=== PATIENT | female | born 1965 | race Caucasian/White ===

== ENCOUNTER 2020-05-15 09:40 | Outpatient (NON) | payer OTHER, SELFPAY ==
[2020-05-16 00:16] LABS: SARS-CoV-2 RNA PCR Negative
== END 2020-05-15 09:41 ==
PROVIDERS: PCP Internal Medicine; Visit Provider Internal Medicine
DX: R68.89 Other general symptoms and signs (principal); Z20.822 Contact with and (suspected) exposure to COVID-19
CPT/HCPCS: C9803; U0003; U0005

== ENCOUNTER → 2021-05-08 03:14 | Outpatient (CLI) | payer OTHER, SELFPAY ==
[2021-05-09 20:55] LABS: SARS-CoV-2 RNA PCR Positive
== END ==
PROVIDERS: PCP Internal Medicine; Visit Provider Internal Medicine
DX: U07.1 COVID-19 (principal); R68.89 Other general symptoms and signs
CPT/HCPCS: C9803; U0003; U0005

== ENCOUNTER 2022-06-27 12:25 | Emergency (ER) | payer OTHER, SELFPAY ==
--- NOTE | 2022-06-27 12:26 | ECG_ITS ---
Measurements Intervals [place] Rate: 94 P: 81 VA: 180 QRS: 85 QRSD: 99 T: 64 QT: 342 QTc: 428 Interpretive Statements SINUS RHYTHM INCOMPLETE RIGHT BUNDLE BRANCH BLOCK [90+ ms QRS DURATION, TERMINAL R IN V1/V2, 40+ ms S IN I/aVL/V4/V5/V6] BORDERLINE ECG NO PREVIOUS ECG AVAILABLE FOR COMPARISON Electronically Signed On 06-27-2022 15:39:26 TIMBER SPRINKLER by Emigdio Valadez M.D.
[2022-06-27 12:40] VITALS: BP 187/90; PULSE 91; RESP 16; TEMP 37.6; O2SAT 100
--- NOTE | 2022-06-27 13:47 | PC.NURSE ---
Pt walked out of ed at this time.
== END 2022-06-27 13:47 | disposition left against medical advice (07) ==
PROVIDERS: Emergency Provider Emergency Medicine; PCP Family Medicine
DX: I10 Essential (primary) hypertension (principal)
CPT/HCPCS: 93005; 99199

== ENCOUNTER 2023-04-09 09:12 | Outpatient (CLI) | payer OTHER, SELFPAY ==
[2023-04-09 12:15] LABS: Alanine Aminotransferase 19 U/L (6-35); Albumin Level 4.3 g/dL (3.5-5.1); Alkaline Phosphatase 68 U/L (38-126); Anion Gap 5 mmol/L (8-16); Aspartate Amino Transferase 34 U/L (14-36); Bilirubin,Total 0.5 mg/dL (0.2-1.3); Blood Urea Nitrogen 16 mg/dL (7-17); Calcium 9.2 mg/dL (8.4-10.2); Carbon Dioxide 28 mmol/L (22-30); Chloride 105 mmol/L (98-107); Cholesterol 224 mg/dL (0-200); Estimated Glomerular Filt Rate > 60; Glucose 91 mg/dL (65-110); HDL Direct 66 mg/dL; Potassium 4.1 mmol/L (3.4-5.0); Sodium 138 mmol/L (137-145); Triglycerides 68 mg/dL (<150)
[2023-04-09 12:25] LABS: LDL Cholesterol Direct 115 mg/dL
[2023-04-09 12:34] LABS: Hemoglobin A1C 5.3 % (<5.7)
[2023-04-09 15:39] LABS: Free T4 Free Thyroxine 0.63 ng/mL (0.78-2.19)
== END 2023-04-09 09:13 | disposition home or self-care (01) ==
PROVIDERS: PCP Family Medicine; Visit Provider Family Medicine
DX: Z13.220 Encounter for screening for lipoid disorders (principal); E03.9 Hypothyroidism, unspecified; Z13.228 Encounter for screening for other metabolic disorders; R73.9 Hyperglycemia, unspecified
CPT/HCPCS: 36415; 80053; 80061; 83036; 84439; 84443

== ENCOUNTER 2023-08-13 09:39 | Outpatient (CLI) | payer OTHER, SELFPAY ==
[2023-08-13 12:54] LABS: Thyroid Stimulating Hormone 0.241 uIU/mL (0.465-4.680)
[2023-08-13 13:46] LABS: Free T4 Free Thyroxine 0.81 ng/mL (0.78-2.19)
== END 2023-08-13 09:40 | disposition home or self-care (01) ==
LOC: ANHGOSHLAB 09:42
PROVIDERS: PCP Family Medicine; Visit Provider Family Medicine
DX: E03.9 Hypothyroidism, unspecified (principal)
CPT/HCPCS: 36415; 84439; 84443

== ENCOUNTER 2023-09-30 11:30 | Outpatient (CLI) | payer OTHER, SELFPAY ==
[2023-09-30 20:12] LABS: Free T4 Free Thyroxine 0.81 ng/mL (0.78-2.19)
[2023-09-30 21:08] LABS: Thyroid Stimulating Hormone 0.714 uIU/mL (0.465-4.680)
== END 2023-09-30 11:31 | disposition home or self-care (01) ==
LOC: ANHGOSHLAB 11:32
PROVIDERS: PCP Family Medicine; Visit Provider Family Medicine
DX: E03.9 Hypothyroidism, unspecified (principal)
CPT/HCPCS: 36415; 84439; 84443

== ENCOUNTER 2024-02-11 10:26 | Outpatient (CLI) | payer OTHER, SELFPAY ==
[2024-02-11 15:19] LABS: Thyroid Stimulating Hormone 0.587 uIU/mL (0.465-4.680)
== END 2024-02-11 10:27 | disposition home or self-care (01) ==
LOC: ANHGOSHLAB 10:27
PROVIDERS: PCP Family Medicine; Visit Provider Family Medicine
DX: E03.9 Hypothyroidism, unspecified (principal)
CPT/HCPCS: 36415; 84439; 84443

== ENCOUNTER 2024-04-12 09:51 | Outpatient (CLI) | payer OTHER, SELFPAY ==
--- NOTE | ~2024-04-12 | MR_ITS ---
MRI of the left knee Clinical history: Pain Technique: Coronal proton density and proton density-weighted images, sagittal proton-density and T2 fat-sat images, and axial proton-density fat-saturated images were acquired. Findings: Anterior and posterior cruciate ligaments are intact. Medial collateral ligament and the la teral collateral ligament complex are intact. Popliteus tendon is intact. Medial and lateral menisci are intact, without evidence of tear. There is advanced constellation patella with focal areas of subchondral cystic change, specially the apex extending to the medial facet. There is focal high-grade chondromalacia the femoral trochlea fernando trally with subchondral cystic change. There is minimal chondral thinning in the medial lateral cuauhtemoc rtments. Extensor mechanism is intact. No significant joint effusion or Bergeron's cyst. Impression: Degenerative changes of the patellofemoral compartment, as above. No ligamentous injury or meniscal tear. Reviewed, dictated and finalized at [facility]. GE CRANE OPERATOR Impression: Degenerative changes of the patellofemoral compartment, as above. No ligamentous injury or meniscal tear.
== END 2024-04-12 09:52 | disposition home or self-care (01) ==
PROVIDERS: PCP Family Medicine; Visit Provider Family Medicine
DX: M17.12 Unilateral primary osteoarthritis, left knee (principal)
CPT/HCPCS: 73721

== ENCOUNTER 2024-04-29 15:08 | Emergency (ER) | payer OTHER, SELFPAY ==
[2024-04-29 16:31] VITALS: BP 153/95; PULSE 115; RESP 16; TEMP 36.9; O2SAT 99
--- NOTE | 2024-04-29 18:05 | ED.URI ---
HPI - URI/Sore Throat General Chief Complaint: Upper Respiratory Infection Stated Complaint: Flu Symptoms Time Seen by Provider: 04/29/24 17:45 Source: patient, RN notes reviewed and old records reviewed Mode of arrival: ambulatory Limitations: no limitations History of Present Illness HPI Narrative: 58 year old female who presents to [facility] care with complaints of cough, nasal congestion and drainage some body aches, for the past 2 days, reports some chills unsure if fever. Patient does have history of asthma and does have inhaler. Patient reports no shortness of breath or any recent wheezing noted, no tachypnea o with SAO2 99% on room air MD elicited complaint: cough, rhinorrhea and nasal congestion Pertinent past history: asthma Onset (ago): day(s) (2) Severity: mild Able to tolerate fluids by mouth: Yes Treatments prior to arrival: ibuprofen Related Data Home Medications ?Medication ?Instructions ?Recorded ?Confirmed ?Last Taken ?Type levalbuterol tartrate 45 2 inh inhalation Q6H PRN 04/10/23 02/12/24 Unknown History mcg/actuation aerosol inhaler (Xopenex HFA) clascoterone 1 % topical cream applic topical 08/14/23 02/12/24 Unknown History (Winlevi) clindamycin 1.2 %-benzoyl peroxide topical 08/14/23 02/12/24 Unknown History 2.5 % topical gel with pump Allergies Allergy/AdvReac Type Severity Reaction Status Date / Time latex Allergy Severe Hives Verified 02/12/24 12:55 Sulfa (Sulfonamide Allergy Severe trouble Verified 02/12/24 12:55 Antibiotics) breathing iodine Allergy Mild edema Verified 02/12/24 12:55 amoxicillin Allergy Unknown Vomiting Verified 02/12/24 12:55 Review of Systems Review of Systems: CONSTITUTIONAL: Reports malaise, chills, sweats, unsure if fever. EYES: Denies visual changes, redness, or discharge. ENT: Reports rhinorrhea, congestion, sinus pain, no otalgia and no sore throat. CARDIOVASCULAR: Denies chest pain, palpitations, or edema. RESPIRATORY: Reports cough.? Denies dyspnea. GASTROINTESTINAL: Denies abdominal pain, nausea, vomiting, diarrhea SKIN: Denies rash or itching. MUSCULOSKELETAL:Reports myalgia. NEUROLOGIC: Denies headache. All systems reviewed & are unremarkable except as noted in HPI and below PMFSH Past Medical History Medical History Hair loss disorder Abnormal mammogram Female pelvic peritoneal adhesion Bladder pain Pelvic pain in female Urinary tract infection symptoms Kidney stones Insomnia disorder Nocturnal leg cramps Hypothyroidism (acquired) Surgical History Surgical History History of mandibular surgery History of hysterectomy Family History Family History Mother Family history of thyroid disease Asthma Grandparent Hypertension Family history of Alzheimer's disease Diabetes mellitus Cerebrovascular accident Father , 76 Hypertension Family history of combined hyperlipidemia Other Family history of allergic disorder Social History Social History Smoking status: Never smoker Second hand tobacco smoke exposure: No Alcohol intake: never Substance use: never Substance use type: does not use Current Housing: Decline to Answer Concerned About Future Housing: Decline to Answer Difficulty Paying Gas/Electric Bills: Decline to Answer Difficulty Paying for Meds: Decline to Answer Currently Unemployed: Decline to Answer Education: Decline to Answer Difficulty w/ Childcare or Family Care: Decline to Answer Comments At time of signature, agree with nursing past medical, surgical, social and family history. There is no relevant family history pertinent to the presenting complaint Exam Narrative: GENERAL: Well-appearing, well-nourished, and in no acute distress. HEAD: Normocephalic EYES: PERRLA, conjunctivae clear ENT: Nares clear, turbinates edematous and erythematous, clear discharge with some sinus pressure,. Mucous membranes moist. TM pearly contreras with dull light reflex bilaterally; no tragal tenderness. Oropharynx erythematous without lesions. Tonsils not enlarged and without exudate, no drooling, no hoarseness, no trismus, uvula midline.post nasal drainage NECK: Supple. No lymphadenopathy CHEST: Clear to auscultation, breath sounds equal. No wheezing, rhonchi, rales, or stridor. No respiratory distress, speaks in full sentences.dry cough noted SAO2 99% on room air HEART: Regular rate and rhythm. No murmur heard. SKIN: Warm, dry, no rash. NEURO: Alert and oriented x3. PSYCH: Normal mood and affect Course Course Emergency Course: Patient is aware of diagnosis, understands and agrees to treatment plan.? Anticipatory guidance given.? Patient agrees to follow-up as directed and is aware of reasons to seek care at the emergency department. Portions of this record may have been created with voice recognition software Level of Care: Express Care Visit Vital Signs Vital signs: Vital Signs Oxygen Delivery Room Air 04/29/24 16:30 Temperature 36.9 C 04/29/24 16:31 Pulse Rate 115 H 04/29/24 16:31 Respiratory Rate 16 04/29/24 16:31 Blood Pressure 153/95 H 04/29/24 16:31 Pulse Oximetry 99 04/29/24 16:31 Oxygen Delivery Room Air 04/29/24 16:30 Reviewed MDM - URI/Sore Throat MDM Narrative Medical decision making narrative: Differential diagnosis considered: Pak virus, strep pharyngitis, allergic rhinitis, upper respiratory tract infection, sinusitis, rhinosinusitis, nasopharyngitis. viral pharyngitis, otitis media, otitis externa, pneumonia, bronchitis, viral cough syndrome, viral syndrome, and influenza.? Exam findings show no acute concerns or changes; patient is non-toxic appearing and is in no distress.? Patient is appropriate for outpatient treatment and follow-up. Differential Diagnosis Differential diagnosis: Likely upper respiratory infection, sinusitis, viral infection, bronchitis, influenza and other (COVID) Medical Records Attestation: I reviewed the patient's medical records. Lab Data Attestation: I reviewed the patient's lab results. Lab results narrative: Influenza A negative, Influenza B negative, COVID antigen positive Labs: Lab Results 04/29/24 Range/Units 16:38 POC Influenza A Ag Negative (Negative) POC Influenza B Ag Negative (Negative) POC SARS CoV-2 Ag Positive (Negative) reviewed Critical Care Time Critical Care Time Critical Care Time: No Discharge Plan Discharge Clinical Impression: COVID-19 Patient Disposition: Home, Self-Care Condition: Stable Instructions: Nirmatrelvir/Ritonavir (By mouth), How to Recover from COVID-19 at Home (ED) Additional Instructions: Increase fluids especially juices and water [id number] cough and cold medicine of your choice for your symptoms Zyrtec Claritin or Jaylin daily use Coricidin brand decongestant Continue your inhaler/nebulizer as directed Tylenol or ibuprofen for fever pain heat to the face 20-30 minutes 4-6 times a day for pain Salt water gargles, throat lozenges or throat sprays as desired Paxlovid per patient request must quarantine COVID-19 DISCHARGE The following recommendations have been made by the CDC and local Health Departments, regarding COVID-19: Those individuals with mild cases of COVID-19 can generally be discontinued from isolation, 10 days AFTER the onset of symptoms AND the resolution of fever for 24hrs (without the use of fever-reducing medications) Those individuals who were asymptomatic, and tested positive, are discontinued from isolation 10 days AFTER their first positive COVID-19 test Those individuals with SEVERE to CRITICAL illness or immunocompromised diseases may require up to 20 days of home isolation or hospitalization Majority of mild to moderate cases can be treated at home, without hospitalization or prescription medications You do not need a negative test result to return to work/school, assuming the above recommendations have been met and you are not symptomatic. At this time, return to work/school notes will not be provided. Guidelines from the local Health Department, CDC, and workplace are expected to be followed. All individuals in the household need to remained quarantined for up to 14 days if asymptomatic OR 10 days after the start of symptoms. Everyone in the home DOES NOT require testing, they are presumed positive and should quarantine as directed. Treating symptoms for mild to moderate cases may include: Tylenol, Flonase/nasal spray, OTC cold/flu medications recommended from your provider or any necessary prescription medications provided at your visit or from your PCP IF YOU TESTED NEGATIVE If you are symptomatic with reason to believe you have COVID-19, there is a high possibility your rapid test may not have detected the virus. Rapid testing is dependent on timing and viral load and may have a false-negative reading You should follow appropriate guidelines regarding quarantine, hand washing, mask wearing, and social distancing You may be sent for PCR testing as an outpatient to the [facility] site Common Adult Symptoms: Fever/chills Cough Shortness of breath Fatigue, muscle aches Headache Loss of taste/smell Sore throat, congestion, runny nose GI symptoms (nausea, vomiting, diarrhea) Common Pediatric Symptoms Cough Fever GI symptoms (diarrhea, upset stomach, nausea, vomiting) Symptoms may differ in severity however, most cases do not require hospitalization. WHEN TO SEEK ER EVALUATION/TREATMENT Severe/persistent shortness of breath or difficulty breathing Elevated, persistent fevers without resolution with fever-reducing medications Chest pain Extreme fatigue/lethargy Complications of pre-existing disease Patient Language: Chadian Prescriptions: New Paxlovid 300 mg (150 mg x 2)-100 mg tablets,dose pack See Rx Instructions .ROUTE .COMPLEX Qty: 30 0RF Rx Instructions: take TWO 150 mg tablets of nirmatrelvir with ONE 100 mg tablet of ritonavir twice daily for 5 days Patient reports that she has not used Wixela inhaler for months and will not take trazadone while on Paxlovid No Action levalbuterol tartrate [Xopenex HFA] 45 mcg/actuation HFA aerosol inhaler 2 inh INHALATION Q6H PRN clindamycin-benzoyl peroxide 1.2-2.5 % gel with pump topical Winlevi 1 % cream topical trazodone 50 mg tablet 50 mg PO DAILY Qty: 90 3RF Rx Instructions: At bedtime (DME) nebulizer supplies See Rx Instructions .Route .MEDSUPPLY Qty: 1 0RF Rx Instructions: adult nebulizer mask & tubing length of need: 99+ months albuterol sulfate 2.5 mg /3 mL (0.083 %) solution for nebulization 2.5 mg INHALATION Q4-6H PRN (Reason: bronchospasm) Qty: 90 3RF thyroid (pork) 90 mg tablet 90 mg PO DAILY Qty: 90 1RF amlodipine-olmesartan 5-20 mg tablet See Rx Instructions .ROUTE .COMPLEX Qty: 90 1RF Dose Instruction: TAKE 1 TABLET DAILY Rx Instructions: TAKE 1 TABLET DAILY fluticasone propion-salmeterol [Wixela Inhub] 250-50 mcg/dose blister with device 1 inh inhalation BID Qty: 60 1RF Follow-up/Referrals: Shane Cade DO [Primary Care Provider] - Stand Alone Forms: Work/School Release IP Time of Disposition: 18:22 Quality [place] Com[place] Scale Eyes: Open Verbal: Oriented and Alert Motor: Follows Commands [place] Com[place] Total Score: 15
[2024-04-29 18:11] LABS: EDCOVIDSCREEN Positive (Negative); EDINFLUASCREEN Negative (Negative); EDINFLUBSCREEN Negative (Negative)
== END 2024-04-29 18:30 | disposition home or self-care (01) ==
PROVIDERS: Emergency Provider Registered Nurse; PCP Family Medicine
DX: U07.1 COVID-19 (principal); E03.9 Hypothyroidism, unspecified
CPT/HCPCS: 87426; 87804; 99213; G0463

== ENCOUNTER 2024-06-14 09:02 | Outpatient (CLI) | payer OTHER, SELFPAY ==
--- OUTSIDE RECORDS SUMMARY | 2024-06-14 09:45 | XMS_ITS | Clinical Summary ---
Author Organization [facility] Address [address] [place] [address] Care Team Providers Care Trolley Wire Installer Name Role Phone Star Mejia MD Unavailable Shane Cade DO Primary Care Provider Allergies Active Allergy Reactions Criticality Noted Date Comments Amoxicillin-Pot Clavulanate Vomiting Low 04/29/2018 Canola Oil Vomiting Low 04/29/2018 Bisacodyl Other (See comments) Low 04/29/2018 Abdominal pain, vomiting Egg Anaphylaxis High Latex Hives Medium Medications fluticasone (FLONASE) 50 mcg/actuation nasal spray Administer 1 spray into each nostril daily. Active levalbuterol (XOPENEX HFA) 45 mcg/actuation inhaler Inhale 1-2 puffs. Active albuterol (PROVENTIL,VENTOLI N) 0.63 mg/3 mL nebulizer solution Take 3 mL (0.63 mg total) by nebulization every 6 (six) hours as needed for wheezing Active fluticasone propion-salmeteroL (ADVAIR HFA) 115-21 mcg/actuation inhaler Inhale 2 puffs 2 (two) times a day Rinse mouth with water after use. Do not swallow. Active traZODone (DESYREL) 50 mg tablet Take 50 mg by mouth nightly Active doxycycline 100 mg tablet 09/19/19 22 Active Advair HFA 230-21 mcg/actuation inhaler 10/15/19 22 Active amlodipine-olmesar de la cruz (SOFIA) 5-20 mg per tablet 10/12/19 23 Active thyroid ([place] Thyroid) 90 mg tabletIndications: Acquired hypothyroidism Take 1 tablet (90 mg total) by mouth daily 90 tablet 3 10/14/19 23 Active Active Problems Problem Noted Date Diagnosed Date Patellar contusion, initial encounter 12/31/2023 Mammogram abnormal 06/12/2018 Hydronephrosis 04/05/2018 Hypothyroidism 02/06/2016 Overview (08/08/2016): Hypothyroidism Assessment & Plan (10/13/2022 9:45 AM CDT): Patient currently on [place] Thyroid 90 mg oral daily Last TSH 07/2021 within normal limits Patient quality of life significantly improved With [place] thyroid Continue current dose Recheck labs Today Follow-up in 1 year Desiccated animal thyroid ([place] ), now mainly obtained from pigs, was the most common form of thyroid therapy before the individual active thyroid hormones were discovered. People can still buy it over the Internet--legally if it s Since pills made from animal thyroid are not purified, they contain hormones and proteins that never exist in the body outside of the thyroid gland. While desiccated thyroid contains both T4 and T3, the balance of T4 and T3 in animals is not the same as in humans, so the hormones in animal thyroid pills aren t necessarily n atural for the human body. Further, the amounts of both T4 and T3 can vary in every batch of desiccated thyroid, making it harder to keep blood levels right. Finally,even desiccated thyroid pills have chemicals (binders) in them to hold the pill together, so they are not completely n atural . Desiccated animal thyroid is rarely prescribed today, and there is no evidence that desiccated thyroid has any advantage over synthetic T4. Assessment & Plan (10/31/2021 1:54 PM CDT): Patient currently on [place] Thyroid 90 mg oral daily Last TSH 07/21/2021 within normal limits Patient quality of life significantly improved With [place] thyroid Continue current dose Recheck labs as advised Follow-up in 1 year Desiccated animal thyroid ([place] ), now mainly obtained from pigs, was the most common form of thyroid therapy before the individual active thyroid hormones were discovered. People can still buy it over the Internet--legally if it s Since pills made from animal thyroid are not purified, they contain hormones and proteins that never exist in the body outside of the thyroid gland. While desiccated thyroid contains both T4 and T3, the balance of T4 and T3 in animals is not the same as in humans, so the hormones in animal thyroid pills aren t necessarily n atural for the human body. Further, the amounts of both T4 and T3 can vary in every batch of desiccated thyroid, making it harder to keep blood levels right. Finally,even desiccated thyroid pills have chemicals (binders) in them to hold the pill together, so they are not completely n atural . Desiccated animal thyroid is rarely prescribed today, and there is no evidence that desiccated thyroid has any advantage over synthetic T4. 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): Patient currently on [place] thyroid 90 mg oral daily Patient quality of life significantly improved THYROID LABS FROM TODAY - PENDING Continue current medication dose FOR NOW, FURTHER PLANS BASED ON TODAY LABS Follow-up in 6 months Call patient to discuss her lab results from today Suppressed TSH with normal free T3 and T4 levels Advised to decrease [place] thyroid to 90 mg oral 6 days a week and skip taking on Thursday Recheck thyroid function test in 3 months Assessment & Plan (09/03/2020 3:42 PM CDT): Patient currently on [place] thyroid 90 mg oral daily Patient quality of life significantly improved Reviewed patient recent thyroid lab results Continue current medication dose Follow-up in 6 months Assessment & Plan (2020 4:17 PM PROFESSOR OF BUSINESS ADMINISTRATION): Patient currently on Synthroid 75 mcg oral daily Last TSH lab 2019 within normal limits But patient quality of life is very poor on synthroid Explained different medication options and discussed ups and Downs of each. Patient willing to try nature Thyroid Will start patient on nature Thyroid 65 mg - advise to take 1.5 tablets oral daily Recheck thyroid hormones in 3 months Follow-up in 3 months Asthma 02/06/2016 Overview (08/08/2016): Asthma Uterine leiomyoma 02/06/2016 Overview (08/08/2016): Uterine fibroids Surgical History Surgery Date Site/Laterality Comments OTHER SURGICAL HISTORY Lyme Disease OTHER SURGICAL HISTORY Tick bite with Lyme disease OTHER SURGICAL HISTORY Orthoscopic Jaw surgery OTHER SURGICAL HISTORY Jaw reconstruction TOTAL ABDOMINAL HYSTERECTOMY Hysterectomy, total OOPHORECTOMY Oophorectomy MANDIBLE FRACTURE SURGERY SECTION 2001, 2003 HYSTERECTOMY OOPHERECTOMY Medical History Medical History Date Comments Thyroid disease Asthma Frequent headaches Family History Medical History Relation Name Comments Heart disease Father Heart disease; Hypertension Father Hypertension; Prostate cancer Father Cancer, pros gaming; Hypothyroidism Mother Hypothyroidis m; Other Mother Alive and well; Relation Name Status Comments Father Mother Alive Social History Tobacco Use Types Packs/Day Years Used Date Smoking Tobacco: Never Smokeless Tobacco: Never Tobacco Cessation:Counseling Given: Not Answered Alcohol Use Standard Drinks/Week Comments No 0 (1 standard drink = 0.6 oz pur e alcohol) AUDIT-C Answer Date Recorded Q1: How often do you have a drink containing alc ohol? Never 04/01/2021 Average Number of Drinks Not on file 021 Frequency of Binge Drinking Not on file 03/05 PHQ-2 Answer Date Recorded PHQ-2 Total Score (If total score is 3 or more points, staff should administer the PHQ-9) 0 04/15/2021 Personal Safety Answer Date Recorded Getting School Help Needed Not on file 04/18 Comments No Sex and Gender Information Value Date Recorded Sex Assigned at Not on file Legal Sex Female 9:17 AM CDT Gender Identity Not on file Sexual Orientation Not on file Obstetrics History Para Term AB IAB SAB Ectopic Multiple Livin g Live Births 2 2 2 2 2 Date Outcome GA Total Labor Labor/2nd/3rd Weight Sex Type Anes PTL [place] A1 A5 Name Clin 2001 Term M CS-Un spec Living Complications:Pre eclampsia 2003 Term M CS-Un spec Living Complications:Pre eclampsia Last Filed Vital Signs Vital Sign Reading Time Taken Comments Blood Pressure 130/90 10/13/2022 9:22 AM CDT Pulse 90 10/13/2022 9:22 AM CDT Temperature 36.8 C (98.2 F) 04/01/2021 1:01 PM PROFESSOR OF BUSINESS ADMINISTRATION Respiratory Rate 12 10/13/2022 9:22 AM CDT Oxygen Saturation 98% 04/01/2021 1:01 PM PROFESSOR OF BUSINESS ADMINISTRATION Inhaled Oxygen Concentration - - Weight 82.6 kg (182 lb) 12/31/2023 9:19 AM CDT Height 175.3 cm (5' 9 ) 12/31/2023 9:19 AM CDT Body Mass Index 26.88 12/31/2023 9:19 AM CDT Plan of Treatment Health Maintenance Due Date Last Done Comments Hepatitis C Screening 1966 Pneumococcal vaccine <65 (1 of 2 - PCV) 1972 DTaP/Tdap/Td Vaccine (1 - Tdap) 1977 Hepatitis B Screening 1984 Zoster Vaccine (1 of 2) 2016 Regular Well Visit/Exam 18-64 04/29/2019 04/29/2018 Depression Screening 04/15/2022 04/15/2021, 09/03/2020, 2020 Breast Cancer Screening-Mammogram 09/27/2023 023, 03/04/2018 Influenza Vaccine (#1) 2024 Colon Cancer Screening-Colonoscopy 02/02/20282017 Cervical Cancer Screening Discontinued 05/04/2011 Colon Cancer Screening-CT Colonography Discontinued 02/01/2018 Colon Cancer Screening-DNA Stool Discontinued 02/02/20 18 Colon Cancer Screening-FIT Discontinued 02/01/2018 Colon Cancer Screening-Sigmoidoscopy Discontinued 05/2017 Procedures Procedure Name Priority Date/Time Associated Diagnosis Comments SCREENING MAMMOGRAM BILATERAL W TAYE Schedule Routine, Read Routine (OP Routine) 09/26/2022 12:42 PM CDT Screening mammogram, encounter for COLONOSCOPY Routine 02/01/2018 PAP SMEAR WITH HPV Routine 05/04/2011 from Last 3 Months or Most Recently Relevant to Health Maintenance Results * Screening Mammogram Bilateral W Taye (09/26/2022 12:42 PM CDT) Anatomical Region Laterality Modality Breast Bilateral Mammography Narrative 10/01/2022 1:19 PM CDT Mammogram Technique: Bilateral Digital Breast Tomosynthesis, Bilateral C-view 2D Screening mammogram. Views obtained: bilateral craniocaudal and bilateral mediolateral oblique. Computer Aided Detection was performed. Mammogram Findings: The present examination has been compared to prior imaging studies performed at [facility] on 12/19/2016 and 03/29/2018. The breasts are heterogeneously dense, which may obscure small masses. There is no suspicious abnormality in either breast. There are no significant changes from the prior study. Impression: There is no mammographic evidence of malignancy. Annual screening mammography is recommended. OVERALL FINAL ASSESSMENT: BI-RADS CATEGORY 1: Negative. Procedure Note Melva Lindsay MD - 10/01/2022 Mammogram Technique: Bilateral Digital Breast Tomosynthesis, Bilateral C-view 2D Screening mammogram. Views obtained: bilateral craniocaudal and bilateral mediolateral oblique. Computer Aided Detection was performed. Mammogram Findings: The present examination has been compared to prior imaging studies performed at [facility] on 12/19/2016 and 03/29/2018. The breasts are heterogeneously dense, which may obscure small masses. There is no suspicious abnormality in either breast. There are no significant changes from the prior study. Impression: There is no mammographic evidence of malignancy. Annual screening mammography is recommended. OVERALL FINAL ASSESSMENT: BI-RADS CATEGORY 1: Negative. Self Screening Mammogram IMG MAMMO PROCEDURES Fi nal Result * COLONOSCOPY (02/01/2018) Colonoscopy Normal Historical Provider HEALTH MAINTENANCE Final Result * PAP SMEAR WITH HPV (05/04/2011) Pap smear Normal Historical Provider HEALTH MAINTENANCE Final Result from Last 3 Months or Most Recently Relevant to Health Maintenance Insurance [employer] [facility] Care Teams Trolley Wire Installer Relationship Specialty Start Date End Date Shane Cade DO [place] [id number] PCP - General Family Medicine 10/28/21 Star Mejia MD [address] [place] [address] 12/05/16
--- OUTSIDE RECORDS SUMMARY | 2024-06-14 09:45 | XMS_ITS | Referral Summary ---
Author Organization [facility] Address [address] [place] [address] Care Team Providers Care Auto Damage Adjuster Name Role Phone Star Mejia MD Unavailable [phone] Shane Cade DO Primary Care Provider [phone] Allergies Active Allergy Reactions Criticality Noted Date [...] mg per tablet 10/12/19 23 Active thyroid ([place] Thyroid) 90 mg tabletIndications: Acquired hypothyroidism Take 1 tablet (90 mg total) by mouth daily 90 tablet 3 10/14/19 23 Active Active Problems Problem Noted Date Diagnosed Date Patellar contusion, initial encounter 12/31/2023 Mammogram abnormal 06/12/2018 Hydronephrosis 04/05/2018 Hypothyroidism 02/06/2016 Overview (08/08/2016): Hypothyroidism Assessment & Plan (10/13/2022 9:45 AM CDT): Patient currently on [place] Thyroid 90 mg oral daily Last TSH 07/2021 within normal limits Patient quality of life significantly improved With [place] thyroid Continue current dose Recheck labs Today Follow-up in 1 year 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 Assessment & Plan (04/15/2021 3:24 PM WARDROBE ASSISTANT): Patient currently on [place] thyroid 90 mg oral daily Patient quality of life significantly improved THYROID LABS FROM TODAY - PENDING Continue current medication dose FOR NOW, FURTHER PLANS BASED ON TODAY LABS Follow-up in 6 months Call patient to discuss her lab results from today Suppressed TSH with normal free T3 and T4 levels Advised to decrease [place] thyroid to 90 mg oral 6 days a week and skip taking on Thursday Recheck thyroid function test in 3 months Assessment & Plan (09/03/2020 3:42 PM CDT): Patient currently on [place] thyroid 90 mg oral daily Patient quality of life significantly improved Reviewed patient recent thyroid lab results Continue current medication dose Follow-up in 6 months Assessment & Plan (2020 4:17 PM WARDROBE ASSISTANT): Patient currently on Synthroid 75 mcg oral [...] Uterine leiomyoma 02/06/2016 Overview (08/08/2016): Uterine fibroids Social History Tobacco Use Types Packs/Day Years [...] on file Sexual Orientation Not on file Last Filed Vital Signs Vital Sign Reading Time Taken Comments Blood Pressure 130/90 10/13/2022 9:22 AM CDT Pulse 90 10/13/2022 9:22 AM CDT Temperature 36.8 C (98.2 F) 04/01/2021 1:01 PM WARDROBE ASSISTANT Respiratory Rate 12 10/13/2022 9:22 AM CDT Oxygen Saturation 98% 04/01/2021 1:01 PM WARDROBE ASSISTANT Inhaled Oxygen Concentration - - Weight 82.6 kg (182 lb) 12/31/2023 9:19 AM CDT Height 175.3 cm (5' 9 ) 12/31/2023 9:19 AM CDT Body Mass Index 26.88 12/31/2023 9:19 AM CDT Plan of Treatment Not on file Procedures Procedure Name Priority Date/Time Associated Diagnosis [...] compared to prior imaging studies performed at [facility] on 12/19/2016 and 03/29/2018. The [...] compared to prior imaging studies performed at [facility] on 12/19/2016 and 03/29/2018. The breasts are heterogeneously dense, which may obscure small masses. There is no suspicious abnormality in either breast. There are no significant changes from the prior study. Impression: There is no mammographic evidence of malignancy. Annual screening mammography is recommended. OVERALL FINAL ASSESSMENT: BI-RADS CATEGORY 1: Negative. us Self Screening Mammogram IMG MAMMO PROCEDURES Fi nal Result * COLONOSCOPY (02/01/2018) Colonoscopy Normal Historical Provider HEALTH MAINTENANCE Final Result * PAP SMEAR WITH HPV (05/04/2011) Pap smear Normal Historical Provider HEALTH MAINTENANCE Final Result from Last 3 Months or Most Recently Relevant to Health Maintenance Insurance [facility] HMO [facility] HMO [facility] HMO Care Teams Auto Damage Adjuster Relationship Specialty Start Date End Date Shane Cade DO [address] [place] [id number] PCP - General Family Medicine 10/28/21 Star Mejia MD [address] [place] [id number] 12/05/16
[2024-06-14 20:26] LABS: Alanine Aminotransferase 19 U/L (6-35); Albumin Level 4.2 g/dL (3.5-5.1); Alkaline Phosphatase 67 U/L (38-126); Anion Gap 9 mmol/L (4-12); Aspartate Amino Transferase 27 U/L (14-36); Bilirubin,Total 0.5 mg/dL (0.2-1.3); Blood Urea Nitrogen 11 mg/dL (7-17); Calcium 9.3 mg/dL (8.4-10.2); Carbon Dioxide 27 mmol/L (22-30); Chloride 105 mmol/L (98-107); Cholesterol 194 mg/dL (0-200); Estimated Glomerular Filt Rate > 60; Glucose 90 mg/dL (65-110); HDL Direct 59 mg/dL; Potassium 4.3 mmol/L (3.4-5.0); Sodium 141 mmol/L (137-145); Triglycerides 68 mg/dL (<150)
[2024-06-14 20:37] LABS: LDL Cholesterol Direct 98 mg/dL
[2024-06-14 20:56] LABS: Thyroid Stimulating Hormone 0.686 uIU/mL (0.465-4.680)
[2024-06-14 21:31] LABS: Free T4 Free Thyroxine 0.84 ng/dL (0.78-2.19)
[2024-06-15 00:28] LABS: Hemoglobin A1C 5.6 % (<5.7)
== END 2024-06-14 09:03 | disposition home or self-care (01) ==
LOC: ANHGOSHLAB 09:03
PROVIDERS: PCP Family Medicine; Visit Provider Student in an Organized Health Care Education/Training Program
DX: E03.9 Hypothyroidism, unspecified (principal); I10 Essential (primary) hypertension; Z83.3 Family history of diabetes mellitus; Z13.220 Encounter for screening for lipoid disorders
CPT/HCPCS: 36415; 80053; 80061; 83036; 84439; 84443